=== PATIENT | male | born 1950 | race Caucasian/White ===

== ENCOUNTER → 2017-09-08 | Outpatient (CLI) | payer OTHER, MEDICARE ==
[~2017-09-08] MED LIST: CALC-449 PO; CALC0.5C PO; HYDR-4330 PO; LEVO125T72 PO; LOSA100T65 PO; LPR25 PO; LPT40 PO; MULT-506 PO
--- NOTE | 2017-09-08 08:17 | DIAGNOSTIC IMAGING REPORT ---
(BARIUM SWALLOW) ESOPHAGUS CLINICAL HISTORY: LARYNGOPHARYNGEAL REFLUX COMPARISON STUDY: None FLUOROSCOPY TIME: 0.8 minutes. FINDINGS: Patient initiated swallowing function well. There is mild esophageal irritability. There is abdomen prominence of the cricopharyngeus. No evidence for cricopharyngeal achalasia. Small hiatal hernia. Mild gastroesophageal reflux. IMPRESSION: 1. Mild esophageal irritability and/or spasm. 2. Intermittent prominence of the cricopharyngeus. 3. Minimal/mild gastroesophageal reflux. The above report was generated using voice recognition software. It may contain grammatical, syntax or spelling errors. Electronically signed by: Onofre Kim M.D. 09/08/2017 8:16 AM Dictated Date/Time: 09/08/2017 8:14 AM
== END | disposition home or self-care (01) ==
LOC: C.RAD 07:40
DX: K21.9 Gastro-esophageal reflux disease without esophagitis (principal)

== ENCOUNTER → 2017-11-14 | Outpatient (CLI) | payer OTHER, MEDICARE ==
[2017-11-14 16:39] LABS: BASO % 0.4 %; BASO ABS # 0.03 K/uL (0-0.2); EOS % 2.9 %; EOS ABS # 0.22 K/uL (0-0.5); HEMATOCRIT 44.8 % (42-52); HEMOGLOBIN 15.2 g/dL (14.0-18.0); IG# 0.01 K/uL (0.00-0.02); LYMPH % 26.8 %; LYMPH ABS # 2.03 K/uL (1.2-3.4); MEAN CELL VOLUME 88.9 fL (80-100); MEAN CORPUSCULAR HEMOGLOBIN 30.2 pg (25-34); MEAN CORPUSCULAR HGB CONC 33.9 g/dl (32-36); MEAN PLATELET VOLUME 11.6 fL (7.4-10.4); MONO % 5.9 %; MONO ABS # 0.45 K/uL (0.11-0.59); NEUT % 63.9 %; NEUT ABS # 4.84 K/uL (1.4-6.5); PLATELET COUNT 170 K/uL (130-400); RED CELL DISTRIBUTION WIDTH SD 41.8 fL (36.4-46.3); WHITE BLOOD COUNT 7.58 K/uL (4.8-10.8)
[2017-11-14 17:13] LABS: BLOOD UREA NITROGEN 20 mg/dl (7-18); CREATININE 0.49 mg/dl (0.60-1.40); GLUCOSE 82 mg/dl (70-99)
[2017-11-14 17:14] LABS: ALBUMIN 3.8 gm/dl (3.4-5.0); ALT/SGPT 28 U/L (12-78); CALCIUM 9.2 mg/dl (8.5-10.1); CARBON DIOXIDE 26 mmol/L (21-32); CHOLESTEROL 136 mg/dl (0-200); POTASSIUM 3.7 mmol/L (3.5-5.1); SODIUM 142 mmol/L (136-145)
[2017-11-14 17:27] LABS: ALKALINE PHOSPHATASE 65 U/L (45-117); AST/SGOT 17 U/L (15-37); LDL CHOLESTEROL CALCULATED 56 mg/dl; TOTAL PROTEIN 6.9 gm/dl (6.4-8.2)
== END | disposition home or self-care (01) ==
LOC: C.LAB 14:54
PROVIDERS: ATTEND Family Medicine
DX: I10 Essential (primary) hypertension (principal); E89.0 Postprocedural hypothyroidism

== ENCOUNTER → 2017-11-16 | Outpatient (CLI) | payer OTHER, MEDICARE ==
[2017-11-16 10:40] LABS: ALBUMIN 3.7 gm/dl (3.4-5.0)
== END | disposition home or self-care (01) ==
LOC: C.LAB1850 09:22
PROVIDERS: ATTEND Internal Medicine Endocrinology, Diabetes & Metabolism
DX: E89.0 Postprocedural hypothyroidism (principal); C73 Malignant neoplasm of thyroid gland; E55.9 Vitamin D deficiency, unspecified

== ENCOUNTER 2018-10-25 05:05 | Inpatient (IN) ==
--- NOTE | 2018-10-10 11:57 | PAT Medication Instructions ---
Medication Instructions Date of Service October 10, 2018 Home Medications aspirin [Aspirin Low Dose] 81 mg PO QAM atorvastatin 40 mg PO HS cholecalciferol (vitamin D3) 2,000 unit PO QAM levothyroxine 200 mcg PO QAM losartan 50 mg PO QAM morfzkgy-ypj-YU-lycopen-lutein [Centrum Silver] 1 tab PO QAM rivaroxaban [Xarelto] 20 mg PO PM hydrochlorothiazide 12.5 mg PO QAM ASK your prescriber and surgeon aspirin [Aspirin Low Dose] 81 mg PO QAM rivaroxaban [Xarelto] 20 mg PO PM DO NOT take the morning of surgery cholecalciferol (vitamin D3) 2,000 unit PO QAM losartan 50 mg PO QAM kwiomjtc-euf-VJ-lycopen-lutein [Centrum Silver] 1 tab PO QAM hydrochlorothiazide 12.5 mg PO QAM Take morning of surgery With a small sip of water, OTHERWISE NOTHING TO EAT OR DRINK AFTER MIDNIGHT: levothyroxine 200 mcg PO QAM Take evening before surgery atorvastatin 40 mg PO HS Other Notes If you have any questions please call us at [phone] or [phone] or [phone] or [phone]
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
--- NOTE | 2018-10-10 15:39 | XRay Report ---
TWO VIEW CHEST CLINICAL HISTORY: Preoperative examination. FINDINGS: PA and lateral chest radiographs are compared to study dated 09/01/2010 and correlated with chest CT dated 09/10/2018. The heart is enlarged and there is mild atherosclerotic calcification of t he thoracic aorta. Chronic interstitial thickening is similar to previous. No airspace consolidation or pleural effusion is identified. There is no pneumothorax. The skeletal structures are osteopenic. The bony thorax appears intact. Degenerative change is seen throughout the thoracic spine. Postoperat melanie change is noted in the left humeral head. Arthritic change is noted in both shoulders. IMPRESSION: Mild cardiac enlargement with no active disease in the chest. Electronically signed by: Shahid White M.D. 10/10/2018 3:37 PM
[2018-10-10 15:42] LABS: Basophils # (auto) 0.02 K/uL (0-0.2); Basophils % (auto) 0.3 %; Eosinophils # (auto) 0.27 K/uL (0-0.5); Eosinophils % (auto) 3.9 %; Hematocrit (blood only) 44.2 % (42-52); Immature Granulocytes # (auto) 0.01 K/uL (0.00-0.02); Immature Granulocytes % (auto) 0.1 %; Lymphocytes # (auto) 1.94 K/uL (1.2-3.4); Lymphocytes % (auto) 27.8 %; Mean Corpuscular Hgb Conc 33.9 g/dL (32-36); Mean Corpuscular Volume 89.5 fL (80-100); Mean Platelet Volume 10.7 fL (7.4-10.4); Monocytes # (auto) 0.43 K/uL (0.11-0.59); Monocytes % (auto) 6.2 %; Neutrophils # (auto) 4.31 K/uL (1.4-6.5); Neutrophils % (auto) 61.7 %; Platelet Count 166 K/uL (130-400); RDW Coefficient of Variation 13.1 % (11.5-14.5); RDW Standard Deviation 43.2 fL (36.4-46.3); Red Blood Count 4.94 M/uL (4.7-6.1); White Blood Count 6.98 K/uL (4.8-10.8)
[2018-10-10 15:49] LABS: BUN Creatinine Ratio 34.5 (10-20); Blood Urea Nitrogen 23 mg/dl (7-18); C Reactive Protein < 0.29 mg/dl (0-0.29); Carbon Dioxide 29 mmol/L (21-32); Chloride 106 mmol/L (98-107); Creatinine Clr Calc Pharmacy 128.3 ml/min; Est GFR (African American) 112.8; Est GFR (Non-African American) 97.4; Glucose 92 mg/dl (70-99); Potassium 4.5 mmol/L (3.5-5.1); Sodium 141 mmol/L (136-145)
[2018-10-10 15:55] LABS: Partial Thromboplastin Time 27.1 Seconds (21.0-31.0); Prothrombin Time 10.4 Seconds (9.0-12.0)
--- NOTE | 2018-10-20 19:35 | History and Physical Report ---
DATE OF ADMISSION: 10/25/2018 CHIEF COMPLAINT: Bilateral knee pain, right side greater than left. HISTORY OF PRESENT ILLNESS: Patient is a 68-year-old cruz from [place] who presents on referral from my partner Dr. Woodard for surgical treatment of his knee arthritis. He has a long history of bilateral knee pain and discomfort, followed by Dr. Woodard over the years. He did have his right hip replaced by Dr. Garnica in the past and then subsequent left hip replacement and left hip revision done by Dr. Garnica. Last hip surgery was 5 years or so ago. He has done pretty well from that standpoint but now limited by knee pain. He describes pain and discomfort in both knees. He has pain going up and down steps. He has difficulty getting off the ground or floor when he gets down. He limps pretty much all day long, and as the day goes on, he limps more and more. He has had injection, which helped very temporarily. He presents now for evaluation and for treatment. Of note, the patient did have a left shoulder surgery by Dr. Noonan 20 years ago complicated by infection but no further infectious problems. He does have a history of a DVT in his left lower extremity 2 years ago and on Xarelto. No known clotting disorder. PAST MEDICAL HISTORY: 1. Hypothyroidism. 2. History of DVT in the left lower extremity without any clotting disorder but on Xarelto. 3. Elevated cholesterol. 4. Hypertension. 5. Thyroid cancer, status post removal. 6. Cerebrovascular disease, status post endarterectomy. PAST SURGICAL HISTORY: Previous surgeries include 1. Right hip replacement. 2. Left hip replacement x2, last one 5 years ago without any infectious problems. 3. Thyroid removal for cancer. 4. Left shoulder surgery, complicated by infection 20 years ago. 5. Hernia operation x2. 6. Carotid endarterectomy. ALLERGIES: None. MEDICATIONS: Current medicines are: 1. Levothyroxine 200 mcg a day. 2. Aspirin 81 mg a day. 3. Atorvastatin 40 mg a day. 4. Vitamin D3. 5. Centrum Silver. 6. Losartan 50 mg a day. 7. Xarelto 20 mg a day. SOCIAL HISTORY: Significant for a 68-year-old male. He is a cruz. He is single. Recently went through a divorce. No smoking history. Rare alcohol intake. FAMILY HISTORY: Significant for heart disease. REVIEW OF SYSTEMS: Negative for diabetes. Denies any current chest pain, no shortness of breath. No known clotting or bleeding disorders. He does have a history of 1 DVT. PHYSICAL EXAMINATION: GENERAL: Examination shows a pleasant elderly cruz, looks to be in pretty good health. HEENT: Benign. NECK: Supple. No lymphadenopathy. RESPIRATORY: Lungs are clear to auscultation. CARDIOVASCULAR: Heart has regular rate and rhythm. GASTROINTESTINAL: Abdomen is soft, nontender, nondistended. EXTREMITIES: Grossly neurovascularly intact except as follows: Examination of both knees reveals patient walks with a waddling type gait. He has varus alignment to both knees, with a varus thrust with weightbearing. Range of motion is pretty symmetric with about 5-10 degrees short of full extension, 110 degrees of flexion. There is no instability. No pain with hip motion. IMAGING: X-rays of both knees reveal advanced bilateral knee DJD. He has complete loss of medial joint space on both sides. Both sides are pretty equal in severity. He has subchondral sclerosis. He has osteophytes in all 3 compartments. ASSESSMENT: A 68-year-old male cruz, status post bilateral hip replacements, with bilateral knee degenerative joint disease, right side more symptomatic than the left. He has failed conservative treatment and would like to have his right knee replaced. He does have a history of a deep venous thrombosis one time 2 years ago and on Xarelto. No known clotting disorder. He has had this infection in the shoulder 20 years ago but no further infections. PLAN: We talked about treatment. We are going to proceed with right knee replacement. The risks and benefits of this procedure were explained to the patient including but not limited to DVT, PE, , infection, neurological injury, vascular injury, bleeding problem, pain, limited range of motion, stiffness, failure to relieve symptoms, incomplete relief of symptoms, need for further surgery in the future, fracture, leg length inequality, nerve palsy, persistent pain, need for revision surgery in the future, etc. The patient understands and desires to proceed. Informed consent was obtained. Will have to hold his Xarelto 3 days preop, and we will place him on prophylactic dose immediately postop and then increased to a therapeutic dose. As far as discharge plans, he is planning to be discharged to home with [facility] home health program. At that time, he is going to need some extra help for the first 2 weeks.
[2018-10-25] MEDS: LR 500ML BOLUS, THEN 15ML/HR IV SCH ×4 (05:50→16:57)
[2018-10-25] MEDS ORDERED: LACTATED RINGER'S 1,000 ML IV SCH (06:00)
[2018-10-25] MEDS ORDERED: CEFAZOLIN 3000MG 65 ML IV SCH (06:00)
[2018-10-25] MEDS ORDERED: ACETAMINOPHEN 500 MG TAB PO SCH (06:00)
[2018-10-25] MEDS ORDERED: FAMOTIDINE 20 MG TAB PO SCH (06:00)
[2018-10-25] MEDS ORDERED: METOCLOPRAMIDE HCL 10 MG TABLET PO SCH (06:00)
[2018-10-25] MEDS ORDERED: BUPIVACAINE LIPOSOME/PF 266 MG, BUPIVACAINE/EPINEPHRINE 50 ML, SODIUM CHLORIDE 0.9% 30 ... INFIL SCH (06:00)
[2018-10-25] MEDS ORDERED: GABAPENTIN 300 MG PO SCH (06:00)
[2018-10-25] MEDS ORDERED: ATROPINE SULFATE 0.1 MG/ML 5ML SYR IV PRN (06:21)
[2018-10-25] MEDS ORDERED: PHENYLEPHRINE 100MCG/ML 5ML SYR IV PRN (06:21)
[2018-10-25] MEDS ORDERED: ROPIVACAINE 0.5% 5 MG/ML 30 ML VIAL ONE (06:21)
[2018-10-25] MEDS ORDERED: HYDROmorphone INJ 1 MG/ML SYRINGE IV PRN (06:21)
[2018-10-25] MEDS ORDERED: ONDANSETRON INJ 2 MG/ML 2 ML VIAL IV PRN ×2 (06:21→10:04)
[2018-10-25] MEDS ORDERED: fentaNYL citrate 100 MCG/2 ML VIAL IV PRN (06:21)
[2018-10-25] MEDS ORDERED: BUPIVACAINE 0.5 % 5 MG/1 ML PF 10ML VIAL ONE (06:21)
[2018-10-25] MEDS ORDERED: ePHEDrine sulfate 50 MG/ML AMP IV PRN (06:21)
[2018-10-25] MEDS ORDERED: BACITRACIN INJ 50,000 UNIT VIAL ONE (06:30)
[2018-10-25] MEDS ORDERED: SODIUM CHLORIDE 0.9% PF 50 ML VIAL ONE (06:30)
[2018-10-25] MEDS ORDERED: BUPIVACAINE LIPOSOME 1.3% 266 MG/20 ML VIAL INFIL ONE (06:30)
[2018-10-25] MEDS ORDERED: TRANEXAMIC ACID 1,000 MG **IV Intra-op IV SCH (06:30)
[2018-10-25] MEDS ORDERED: BUPIVACAINE 0.25% 30 ML VIAL ONE (06:30)
[2018-10-25] MEDS ORDERED: EPINEPHrine INJ 1 MG/ML AMP ONE (06:31)
[2018-10-25] MEDS ORDERED: fentaNYL citrate 100 MCG/2 ML VIAL ONE (06:40)
[2018-10-25] MEDS ORDERED: MIDAZOLAM HCL 1 MG/ML 2ML VIAL ONE ×3 (06:40→08:18)
[2018-10-25] MEDS ORDERED: LIDOCAINE HCL 2% 2 ML VIAL/AMP(20MG/ML) INFIL ONE (06:44)
[2018-10-25] MEDS ORDERED: PROPOFOL IV EMULSION 10 MG/ML 20 ML VIAL IV ONE (06:44)
--- NOTE | 2018-10-25 06:48 | History & Physical Bridge Note ---
Date of Service October 25, 2018 History & Physical Bridge Note I have examined the patient, reviewed the History & Physical and in the interval since the performance of the History & Physical I have noted the following changes of clinical significance: no changes noted
--- NOTE | 2018-10-25 08:47 | Post Operative Brief Note ---
Immediate Post Op Note v1 Date of Surgery October 25, 2018 Pre & Post Diagnosis Operation Date: 10/25/18 07:00 Pre-Op Diagnosis: Right Knee Advanced Degenerative Joint Disease Post-Op Diagnosis: Right Knee Advanced Degenerative Joint Disease Procedure Operation Date: 10/25/18 07:00 Actual Procedures p Right Total Knee Arthroplasty(Right) - Monty Christensen MD Surgeon Monty Christensen MD Prehemmer Willie, PAC Estimated Blood Loss 50 Findings Consistent with Post-Op Diagnosis Fluids 1500 cc Specimens Right Knee Drains Wade Catheter (A 16 Palau[place] wade catheter was inserted by NEHA Moya, without difficulty, clear yellow urine obtained, output to be monitored by Anesthesia.) Anesthesia Type Spinal MAC Complications none Disposition Accompanied Patient To Recovery: No Disposition: Recovery Room
--- NOTE | 2018-10-25 09:30 | XRay Report ---
XR knee RT 2V routine CLINICAL HISTORY: Surgical Post Op DEGENERATIVE ARTHRITIS COMPARISON: Outside x-ray dated 09/14/2018 DISCUSSION: There are postsurgical changes of a total right knee arthroplasty and patellar resurfacin g. The femoral and tibial components appear well seated. There is air in soft tissues consistent with recent surgery. There are overlying skin lena. IMPRESSION: Postsurgical changes of a total right knee arthroplasty. Electronically signed by: Parth Ordaz M.D. 10/25/2018 9:28 AM
--- NOTE | 2018-10-25 09:54 | Anesthesiology Progress Note ---
Date of Service October 25, 2018 Anesthesia Post Procedure Vital Signs Vital Signs: Temp Pulse Pulse Resp BP Pulse Ox 10/25/18 09:44 74 13 126/84 98 10/25/18 09:30 72 12 144/87 H 97 10/25/18 09:20 36.3 C L 64 12 127/83 97 10/25/18 09:10 68 15 133/80 98 10/25/18 09:00 65 12 133/85 99 10/25/18 08:51 36.4 C L 68 18 127/83 99 10/25/18 05:31 36.9 C 74 18 156/101 H 94 Notes Mental Status: alert / awake / arousable Patient Amnestic to Procedure: Yes Nausea / Vomiting: adequately controlled Pain: adequately controlled Airway Patency, RR, SpO2: stable & adequate BP & HR: stable & adequate Neuraxial Anesthesia: was administered and sensory block is resolving Anesthetic Complications: no major complications apparent
[2018-10-25] MEDS ORDERED: MAGNESIUM HYDROXIDE SUSP 30 ML UDC PO PRN (10:04)
[2018-10-25] MEDS ORDERED: MULTIVITAMIN TAB PO SCH (10:04)
[2018-10-25] MEDS ORDERED: BISACODYL 10 MG SUPP PR PRN (10:04)
[2018-10-25] MEDS ORDERED: ALUMINUM/MAGNESIUM SUSP 30 ML UDC PO PRN (10:04)
[2018-10-25] MEDS ORDERED: TAMSULOSIN HCL 0.4 MG CAP PO PRN (10:04)
[2018-10-25] MEDS ORDERED: METOCLOPRAMIDE HCL INJ 5 MG/ML 2 ML VIAL IV PRN (10:04)
[2018-10-25] MEDS ORDERED: HYDROmorphone INJ 0.5 MG/0.5 ML SYR IV PRN (10:04)
--- NOTE | 2018-10-25 10:32 | Operative Report ---
DATE OF OPERATION: 10/25/2018 SURGEON: Monty Christensen MD MARKETING RESEARCH COORDINATOR: NEHA Carlos PREOPERATIVE DIAGNOSIS: Right knee degenerative joint disease. POSTOPERATIVE DIAGNOSIS: Right knee degenerative joint disease. PROCEDURE PERFORMED: Right cemented posterior stabilized total knee arthroplasty. COMPLICATIONS: None. ESTIMATED BLOOD LOSS: 50 mL. FLUID REPLACEMENT: 1500 mL crystalloid fluid replacement. ANESTHESIA: Spinal with adductor canal block. DRAINS: None. SPECIMENS: Right knee sent for pathology. TOURNIQUET TIME: 62 minutes at 300 mmHg. OPERATIVE INDICATIONS: The patient is a 68-year-old very active cruz who has had a long history of knee pain and discomfort, right side a bit worse than the left. He has been through extensive conservative treatment over the years provided by my partner Dr. Woodard. This became less successful over time. He has trouble maintaining an independent lifestyle and would like to proceed with right total knee arthroplasty. OPERATIVE FINDINGS: Operative findings revealed advanced right knee DJD. He had extensive grade 4 lztd-bi-kgii changes in all 3 compartments. Fixed varus deformity to his knee. Moderate to large knee joint effusion. OPERATIVE IMPLANTS: Operative implants consisted of: 1. Biomet Vanguard size 75 right posterior stabilized femoral component. 2. A Biomet size 83 tibial tray. 3. A 12 mm posterior stabilized polyethylene insert. 4. A 34 x 8.5 all poly patella. OPERATIVE PROCEDURE: The patient was taken to the operating room, identified and placed on the operating table in supine position. All contact areas were appropriately padded. IV antibiotics were provided by the anesthesia team. A spinal anesthetic and adductor canal block had been provided in the holding area. Aleman catheter was placed in sterile fashion. A right thigh tourniquet was then placed and the right lower extremity was then prepped and draped in usual sterile fashion. The leg was elevated and exsanguinated with Esmarch and tourniquet was placed at 300 mmHg. An anterior approach of the right knee was then performed through a longitudinal incision centered over the patella. Sharp dissection was carried through subcutaneous tissue down to the level of the extensor mechanism. A medial parapatellar arthrotomy incision was made. Some subperiosteal dissection was carried out medially. The fat pad resected from beneath the patellar tendon. There were multiple bony fragments around the patella tendon which were excised and scarred in. The patella was then everted and knee was flexed. The osteophytes were taken off the distal femur. The lateral patellofemoral ligament was released. The ACL was absent. The PCL was released from the distal femur and the tibia subluxated anteriorly. The external tibial alignment jig was then placed in the anterior face of the tibia and adjusted 16 mm medially. Proximal tibial cut was made to remove a millimeter at best of bone from the most deficient aspect of the medial tibial plateau. Some osteophytes were taken off medial and posteromedially. Tibia was sized to size 83. Attention was then drawn to the femur. The distal femur was entered with a sharp drill. Intramedullary canal was suctioned. A right 6-degree valgus cutting guide was placed. Distal femoral cutting block was pinned in place. Distal femoral cut was made to take an additional 3 mm of bone off the distal femur. The femur was then sized to a size 75. We did downsize this almost an entire size. The AP cutting block was pinned parallel to the epicondylar axis, which was 3 degrees of external rotation. The anterior cut, anterior chamfer, posterior cut, posterior chamfer cuts were made. Box cutting guide was placed and adjusted slightly lateral. The box cut was made. The knee was flexed. The remnants of the medial and lateral menisci were excised. The osteophytes were taken off the posterior aspect of the femur. Trial femoral component was placed. Tibial tray was pinned in maximum external rotation and the drill and stem punch were used to create defect in proximal tibia for the tibial tray. The knee was then trialed and the 12 mm insert fit most appropriately. Attention was then drawn to the patella. The patella was cleaned of all soft tissues. Patella thickness measured 25 mm in thickness cut down to 14. It was sized to a size 34 patella. Lug holes were drilled for a 34 patella. Lateral osteophyte was removed. Patella button was placed. Knee was taken through range of motion and patella tracked nicely with no thumbs test. Attention was then drawn toward placement of permanent components. All trial components were removed. Bone plug was placed in the distal femur to limit blood loss. A double batch of Palacos G cement was mixed. A Biomet Vanguard size 75 right posterior stabilized femoral component, an 83 tibial tray, 12 mm posterior stabilized polyethylene insert, and a 34 x 8.5 all poly patella then cemented in place. Knee was brought down into full extension until cement hardened. Final cement check was then performed. Pericapsular tissues were injected with a total of 100 mL of combination of 20 mL of Exparel, 30 mL of normal saline, 50 mL of 0.25% Marcaine with epinephrine. The patient did receive 1 gram of tranexamic acid. The tourniquet was then let down for final tourniquet time of 62 minutes. Hemostasis was assured using electrocautery. Extensor mechanism was then closed with a combination of #1 PDS suture and #1 Vicryl suture in a [id number] fashion. Extensor mechanism was checked and found to be intact. The subcutaneous tissues were then closed with #2 Dexon suture in a buried interrupted fashion. Skin was closed with skin lena. The leg was then cleaned, dried and a sterile dressing of Xeroform, 4 x 4, sterile cast padding and Sarabjit bandage were applied. The patient then transferred to the recovery room in stable condition. The patient tolerated the procedure well with no complication. All needle and sponge counts were correct at the end of the operation. I attest to the content of the Intraoperative Record and any orders documented therein. Any exception s are noted below.
[2018-10-25] MEDS: hydroCHLOROthiazide 25 MG TAB PO SCH (10:43)
[2018-10-25] MEDS: ASPIRIN 81 MG ECTAB PO SCH (10:43)
[2018-10-25] MEDS: LOSARTAN POTASSIUM 50 MG TAB PO SCH (10:43)
[2018-10-25] MEDS: PANTOprazole 40 MG TAB PO SCH (10:44)
[2018-10-25] MEDS: CEROVITE ADV FORMULA TAB PO SCH (10:44)
[2018-10-25] MEDS: CHOLECALCIFEROL 1,000 UNITS TAB PO SCH (10:44)
[2018-10-25] MEDS: LEVOTHYROXINE SODIUM 200 MCG TABLET PO SCH (10:44)
[2018-10-25] MEDS: DOCUSATE SODIUM 100 MG CAP PO SCH ×2 (10:45→20:52)
[2018-10-25] MEDS: KETOROLAC TROMETHAMINE 15 MG/ML VIAL IV SCH ×3 (10:45→22:00)
[2018-10-25] MEDS: ACETAMINOPHEN 500 MG TAB PO SCH ×2 (13:02→20:53)
[2018-10-25] MEDS: SODIUM CHLORIDE 0.9% 1000ML 1,000 ML IV SCH ×2 (13:38→22:00)
[2018-10-25] MEDS: TAPENTADOL HCL ER 50 MG TABCR PO SCH ×2 (14:10→20:52)
[2018-10-25] MEDS: CEFAZOLIN 2000MG 2,000 MG/15 ML SYR IV SCH ×2 (14:10→22:01)
[2018-10-25] MEDS ORDERED: TRANEXAMIC ACID 1,000 MG in 0.9 % SODIUM CHLORIDE 100 ML IV SCH (15:30)
[2018-10-25] MEDS: OXYCODONE HCL IR 5 MG TAB (IMMEDIATE RELEASE) PO PRN ×2 (17:20→21:01)
[2018-10-25] MEDS: FERROUS GLUCONATE 324 MG TAB PO SCH (17:22)
[2018-10-25] MEDS: SENNA 8.6 MG TAB PO SCH (20:52)
[2018-10-25] MEDS: ATORVASTATIN 40 MG TAB PO SCH (20:52)
[2018-10-26] MEDS: KETOROLAC TROMETHAMINE 15 MG/ML VIAL IV SCH (04:05)
[2018-10-26] MEDS: LEVOTHYROXINE SODIUM 200 MCG TABLET PO SCH (06:18)
[2018-10-26] MEDS: ACETAMINOPHEN 500 MG TAB PO SCH ×3 (06:18→22:46)
[2018-10-26 07:09] LABS: Hemoglobin 13.4 g/dL (14.0-18.0); Mean Corpuscular Hgb Conc 33.5 g/dL (32-36); Mean Corpuscular Volume 88.9 fL (80-100); Mean Platelet Volume 11.5 fL (7.4-10.4); Platelet Count 133 K/uL (130-400); RDW Coefficient of Variation 13.3 % (11.5-14.5); RDW Standard Deviation 43.4 fL (36.4-46.3); White Blood Count 9.16 K/uL (4.8-10.8)
[2018-10-26 07:44] LABS: BUN Creatinine Ratio 27.8 (10-20); Calcium 8.2 mg/dl (8.5-10.1); Creatinine Clr Calc Pharmacy 108.2 ml/min; Est GFR (African American) 105.4; Potassium 3.8 mmol/L (3.5-5.1)
--- NOTE | 2018-10-26 07:44 | Anesthesiology Progress Note ---
Date of Service October 26, 2018 Anesthesia Post Procedure Vital Signs Vital Signs: Temp Pulse Pulse Resp BP Pulse Ox 10/26/18 03:12 36.7 C 74 16 133/78 97 10/25/18 23:19 36.9 C 80 16 120/78 92 10/25/18 15:32 36.8 C 71 20 151/90 H 96 10/25/18 13:06 36.6 C 71 15 158/90 H 97 10/25/18 11:58 36.6 C 73 15 148/85 H 97 10/25/18 11:04 65 19 150/94 H 98 10/25/18 10:31 36.4 C L 76 17 149/80 H 98 10/25/18 10:07 36.4 C L 71 15 138/85 97 10/25/18 09:44 74 13 126/84 98 10/25/18 09:30 72 12 144/87 H 97 10/25/18 09:20 36.3 C L 64 12 127/83 97 10/25/18 09:10 68 15 133/80 98 10/25/18 09:00 65 12 133/85 99 10/25/18 08:51 36.4 C L 68 18 127/83 99 Pain Intensity Right Knee: Pain Intensity: 3 Notes Mental Status: alert / awake / arousable and participated in evaluation Patient Amnestic to Procedure: Yes Nausea / Vomiting: adequately controlled Pain: adequately controlled Airway Patency, RR, SpO2: stable & adequate BP & HR: stable & adequate Hydration State: stable & adequate Neuraxial Anesthesia: was administered and sensory block resolved Anesthetic Complications: no major complications apparent
[2018-10-26] MEDS: DOCUSATE SODIUM 100 MG CAP PO SCH ×2 (09:03→20:04)
[2018-10-26] MEDS: FERROUS GLUCONATE 324 MG TAB PO SCH ×2 (09:03→18:22)
[2018-10-26] MEDS: LOSARTAN POTASSIUM 50 MG TAB PO SCH (09:03)
[2018-10-26] MEDS: ASPIRIN 81 MG ECTAB PO SCH (09:04)
[2018-10-26] MEDS: hydroCHLOROthiazide 25 MG TAB PO SCH (09:04)
[2018-10-26] MEDS: CEROVITE ADV FORMULA TAB PO SCH (09:05)
[2018-10-26] MEDS: CHOLECALCIFEROL 1,000 UNITS TAB PO SCH (09:05)
[2018-10-26] MEDS: PANTOprazole 40 MG TAB PO SCH (09:05)
[2018-10-26] MEDS: RIVAROXABAN 10 MG TABLET PO SCH (09:06)
[2018-10-26] MEDS: TAPENTADOL HCL ER 50 MG TABCR PO SCH ×2 (09:10→20:04)
[2018-10-26] MEDS: OXYCODONE HCL IR 5 MG TAB (IMMEDIATE RELEASE) PO PRN ×3 (09:10→22:47)
--- NOTE | 2018-10-26 09:44 | Progress Note ---
DATE: 10/26/2018 SUBJECTIVE: A 68-year-old gentleman postop day 1 from right knee replacement. He is doing well. Pain is controlled. No chest pain or shortness of breath. Not feeling dizzy or lightheaded. OBJECTIVE: VITAL SIGNS: Temperature 36.7. Vital signs stable. GENERAL: Physical examination shows a healthy, pleasant, middle-aged male. He is sitting up in his bedside chair and looks comfortable. LUNGS: Clear to auscultation. HEART: Regular rate and rhythm. ABDOMEN: Soft, nontender, nondistended. EXTREMITIES: Grossly neurovascularly intact except as follows: Examination of the right leg reveals the dressing to be in place. Just a trace bit of bloody drainage. He can dorsiflex and plantarflex his foot appropriately. He is neurologically intact. LABORATORY DATA: Hemoglobin 13.4. Hematocrit 40.0. His electrolytes are pending. ASSESSMENT: A 68-year-old gentleman postop day 1 from right knee replacement, doing pretty well. Pain is controlled. He is neurologically intact. PLAN: 1. DVT prophylaxis including thigh-high TEDs, SCDs, and will put him back on his Xarelto. He is going to be on a prophylactic dose here initially and then a therapeutic dose on discharge. 2. PT, OT. Weight bear as tolerated. Right total knee protocol. 3. Pain control, doing well with current pain regimen. 4. Disposition: Plan to discharge to home with some home health once adequately recovered.
[2018-10-26] MEDS: ATORVASTATIN 40 MG TAB PO SCH (20:04)
[2018-10-26] MEDS: SENNA 8.6 MG TAB PO SCH (20:04)
[2018-10-27 06:28] VITALS: BP 161/80; PULSE 98; TEMP 99.3; O2SAT 93
[2018-10-27] MEDS: OXYCODONE HCL IR 5 MG TAB (IMMEDIATE RELEASE) PO PRN (06:40)
[2018-10-27] MEDS: ACETAMINOPHEN 500 MG TAB PO SCH (06:40)
[2018-10-27] MEDS: LEVOTHYROXINE SODIUM 200 MCG TABLET PO SCH (06:40)
[2018-10-27] MEDS: LOSARTAN POTASSIUM 50 MG TAB PO SCH (07:28)
[2018-10-27] MEDS: FERROUS GLUCONATE 324 MG TAB PO SCH (07:28)
[2018-10-27] MEDS: DOCUSATE SODIUM 100 MG CAP PO SCH (07:28)
[2018-10-27] MEDS: hydroCHLOROthiazide 25 MG TAB PO SCH (07:29)
[2018-10-27] MEDS: ASPIRIN 81 MG ECTAB PO SCH (07:29)
[2018-10-27] MEDS: CEROVITE ADV FORMULA TAB PO SCH (07:30)
[2018-10-27] MEDS: PANTOprazole 40 MG TAB PO SCH (07:31)
[2018-10-27] MEDS: CHOLECALCIFEROL 1,000 UNITS TAB PO SCH (07:31)
[2018-10-27] MEDS: RIVAROXABAN 10 MG TABLET PO SCH (07:32)
[2018-10-27] MEDS: TAPENTADOL HCL ER 50 MG TABCR PO SCH (07:34)
--- NOTE | 2018-10-27 08:24 | Progress Note ---
DATE: 10/27/2018 SUBJECTIVE: A 68-year-old gentleman postop day 2 from a right knee replacement. He is doing pretty well. Pretty painful after therapy. The pain medicine seems to work pretty well. No chest pain or shortness of breath. Not feeling dizzy or lightheaded. OBJECTIVE: VITAL SIGNS: Temperature 37.4. Vital signs stable. GENERAL: Physical examination shows a pleasant, middle-aged male. He is sitting up in the bedside chair, looks pretty comfortable. EXTREMITIES: Examination of the right leg reveals the dressing to be clean, dry and intact. Calf is soft and supple. He is neurologically intact. ASSESSMENT: A 68-year-old gentleman postop day 2 from right knee replacement, doing well. Pain is controlled. PLAN: 1. DVT prophylaxis including thigh-high TEDs, SCDs, and back on his Xarelto. We will start back on a therapeutic dose tomorrow. 2. PT/OT. Weight bear as tolerated. Right total knee protocol. 3. Pain control, doing well with current pain regimen. 4. Disposition: Plan to discharge to home with some home health later today.
--- NOTE | 2018-11-01 08:20 | Discharge Summary ---
ADMITTING PHYSICIAN AND SURGEON: Dr. Christensen. ADMITTING DIAGNOSIS: Right knee degenerative joint disease. SURGERY PERFORMED: Right total knee arthroplasty. SECONDARY DIAGNOSES: Hypothyroidism, history of DVT, elevated cholesterol, hypertension, thyroid cancer, cerebrovascular disease. CONSULTS: None obtained. HISTORY AND PHYSICAL EXAMINATION: Well documented in the patient's chart. HOSPITAL COURSE: The patient admitted on 10/25/2018 and underwent total knee arthroplasty, tolerated the procedure well. There were no complications. He was transferred to the PACU postoperatively and later to the orthopedic floor for further care. He was given Ancef for antibiotic prophylaxis, VITALY stockings, SCDs and Xarelto for DVT prophylaxis. Hemoglobin, hematocrit and vital signs were monitored during his hospital stay and remained stable, did not require any blood transfusions. There were no complications. By postoperative day 2, he was tolerating a regular diet, pain was controlled with oral pain medicine. He was participating in physical therapy. On postop day 2, he was discharged home, set up with home health services, given printed discharge instructions including new prescriptions for Tylenol and oxycodone. Continue his home medications, continue with physical therapy, weightbearing as tolerated, VITALY stockings. Follow up approximately 2 weeks postoperatively or sooner if any problems or concerns.
== END 2018-10-27 10:34 | disposition home health service (06) | DRG 470 ==
LOC: PAT 05:05 → 3E 08:53

== ENCOUNTER 2025-01-15 11:32 | Observation (INO) ==
--- NOTE | 2024-12-20 10:01 | PAT Medication Instructions ---
Medication Instructions Date of Service December 20, 2024 Home Medications Medication Instructions Recorded baclofen 20 mg tablet 20 mg PO TID #270 tabs 12/11/24 pregabalin 75 mg capsule 75 mg PO BID #120 caps 12/11/24 topiramate 100 mg tablet 100 mg PO BID #180 tabs 12/11/24 Medication List: cholecalciferol (vitamin D3) 25 mcg (1,000 unit) capsule (Vitamin D3) 2,000 unit PO QAM levothyroxine 200 mcg tablet 200 mcg PO QAM zfqtcucg-gjh-vdodi acid 0.4 mg-lycopene 300 mcg-lutein 250 mcg tablet (Centrum Silver) 1 tab PO QAM losartan 100 mg tablet 100 mg PO QAM turmeric 400 mg capsule 400 mg PO QAM rosuvastatin 40 mg tablet 40 mg PO HS baclofen 20 mg tablet 20 mg PO TID levothyroxine 25 mcg tablet 25 mcg PO QAM pregabalin 75 mg capsule 75 mg PO BID topiramate 100 mg tablet 100 mg PO BID rivaroxaban 10 mg tablet (Xarelto) 10 mg PO HS MEDICATION INSTRUCTIONS: ASK your prescriber and surgeon rivaroxaban 10 mg tablet (Xarelto) 10 mg PO HS STOP taking 48 hours before surgery turmeric 400 mg capsule 400 mg PO QAM DO NOT take the morning of surgery otbwltyg-nor-nxwet acid 0.4 mg-lycopene 300 mcg-lutein 250 mcg tablet (Centrum Silver) 1 tab PO QAM cholecalciferol (vitamin D3) 25 mcg (1,000 unit) capsule (Vitamin D3) 2,000 unit PO QAM losartan 100 mg tablet 100 mg PO QAM Take morning of surgery With a small sip of water, OTHERWISE NOTHING TO EAT OR DRINK AFTER MIDNIGHT: levothyroxine 25 mcg tablet 25 mcg PO QAM levothyroxine 200 mcg tablet 200 mcg PO QAM baclofen 20 mg tablet 20 mg PO TID pregabalin 75 mg capsule 75 mg PO BID topiramate 100 mg tablet 100 mg PO BID Take evening before surgery rosuvastatin 40 mg tablet 40 mg PO HS baclofen 20 mg tablet 20 mg PO TID pregabalin 75 mg capsule 75 mg PO BID topiramate 100 mg tablet 100 mg PO BID Other Notes If you have any questions please call us at [phone] or [phone] or [phone] or [phone]
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
[~2025-01-15 11:32] MED LIST changes: +BUPIVACAINE 0.5 % 5 MG/1 ML PF 10ML VIAL ONE; -CALC-449 PO; -CALC0.5C PO; -HYDR-4330 PO; -LEVO125T72 PO; -LOSA100T65 PO; -LPR25 PO; -LPT40 PO; -MULT-506 PO; +ceFAZolin 3000MG 3,000 MG/72.5 ML BAG IV SCH
[2025-01-15] MEDS ORDERED: fentaNYL citrate PF 100 MCG/2 ML VIAL ONE (11:44)
[2025-01-15] MEDS ORDERED: MIDAZOLAM HCL 1 MG/ML 2ML VIAL ONE (11:44)
[2025-01-15] MEDS ORDERED: PROPOFOL IV EMULSION 10 MG/ML 20 ML VIAL IV ONE (11:47)
[2025-01-15] MEDS ORDERED: ONDANSETRON INJ 2 MG/ML 2 ML VIAL ONE (11:47)
[2025-01-15] MEDS ORDERED: ROCURONIUM BROMIDE 10 MG/ML 5 ML VIAL IV ONE ×2 (11:47→15:32)
[2025-01-15] MEDS: ACETAMINOPHEN 500 MG TAB PO SCH ×2 (12:18→22:30)
[2025-01-15] MEDS: METOCLOPRAMIDE HCL 10 MG TABLET PO SCH (12:19)
[2025-01-15] MEDS: dexAMETHasone**PF** 10 MG/ML VIAL IV SCH (12:19)
[2025-01-15] MEDS: GABAPENTIN 300 MG CAP PO SCH (12:19)
[2025-01-15] MEDS: FAMOTIDINE 20 MG TAB PO SCH (12:19)
[2025-01-15] MEDS: LR 60ML/HR IV SCH (12:19)
[2025-01-15] MEDS: CeleBREX 200 MG CAP PO SCH (12:19)
[2025-01-15] MEDS: LR 15ML/HR IV SCH (12:20)
[2025-01-15] MEDS ORDERED: ONDANSETRON INJ 2 MG/ML 2 ML VIAL IV PRN ×2 (12:38→17:46)
[2025-01-15] MEDS ORDERED: ATROPINE SULFATE 0.1 MG/ML 10ML SYR IV PRN (12:38)
[2025-01-15] MEDS ORDERED: fentaNYL citrate PF 100 MCG/2 ML VIAL IV PRN (12:38)
[2025-01-15] MEDS ORDERED: ePHEDrine sulfate 50 MG/ML AMP IV PRN (12:38)
--- NOTE | 2025-01-15 12:39 | History & Physical Bridge Note ---
Date of Service January 15, 2025 History & Physical Bridge Note I have examined the patient, reviewed the History & Physical and in the interval since the performance of the History & Physical I have noted the following changes of clinical significance: Fine rash no weeping right shoulder likely reaction to ChloraPrep wipes.
[2025-01-15] MEDS: TRANEXAMIC ACID 1,000 MG **IV Pre-op IV SCH (12:56)
[2025-01-15] MEDS: ceFAZolin 2000MG 2,000 MG/15 ML SYR IV ONE ×2 (13:09→17:55)
[2025-01-15] MEDS ORDERED: ePHEDrine sulfate 50 MG/ML AMP ONE (13:36)
[2025-01-15] MEDS ORDERED: PHENYLEPHRINE HCL 10 MG/ML VIAL ONE (15:41)
[2025-01-15] MEDS: TRANEXAMIC ACID 1,000 MG **IV Intra-op IV SCH (16:22)
[2025-01-15] MEDS ORDERED: ceFAZolin 330 MG/ML 1 GM VIAL ONE (16:27)
[2025-01-15] MEDS ORDERED: GLYCOPYRROLATE 0.2 MG/ML VIAL ONE (16:31)
[2025-01-15] MEDS ORDERED: NEOSTIGMINE METHYLSULFATE 1 MG/ML 10ML VIAL ONE (16:31)
[2025-01-15] MEDS: ceFAZolin 2,000 MG/15 ML IV PUSH IV ONE (16:42)
--- NOTE | 2025-01-15 17:01 | Operative Report ---
Post Operative Report Pre & Post Diagnosis Operation Date: 01/15/25 12:55 Pre-Op Diagnosis: Rotator cuff tear arthropathy of right shoulder, humeral head cyst, chronic non repairable rotator cuff, prior proximal biceps rupture, severe glenoid bone loss. Post-Op Diagnosis: Same with 4.5 x 4.5 large humeral head fatty fibrous cyst well-contained.Massive subacromial bursitis I identified the patient and participated in the time-out.: Yes Procedure Operation Date: 01/15/25 12:55 Actual Procedures p Right Reverse Total Shoulder Arthroplasty requiring modular stem with distal humeral fixation, Curettage and bone grafting of Humeral head cyst, in situ biceps tenodesis (Right) - Piotr Goldstein MD Surgeon Piotr Goldstein MD Orthopedics Pediatric Physician Bienvenido SOLOMON Estimated Blood Loss 250 Findings Consistent with Post-Op Diagnosis Specimens 1. Humeral head cyst 2. 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 Patient has severe rotator cuff arthropathy [place] 4 with hufk-rb-[id number] glenohumeral joint and subacromial space and bone loss of the glenoid extending into the coracoid process which is partially fragmented from bone wear and posteriorly to the spine and the scapula. Chronic retracted rotator cuff tear subscapularis supraspinatus infraspinatus. Description of Procedure The patient was taken to the operating room and anesthetized under regional block and general anesthetic. The patient was positioned on the operating table in a 30 beach chair position with a towel roll under the medial border of the right scapula. The arm was draped free to be able to manipulate the shoulder as needed. The right upper extremity was prepped and draped in usual sterile fashion. Exam demonstrated good passive range of motion of the shoulder with [id number]-[id number] crepitation and a very prominent deformed AC joint from AC joint arthritis. AC joint currently asymptomatic.. An anterior deltopectoral approach was performed. A longitudinal incision was made in the deltopectoral interval. The skin was incised sharply. Subcutaneous flaps were elevated off the fascia. The cephalic vein was dissected out and retracted lateral with the deltoid. It was a moderately small vein. The clavipectoral fascia was divided at the lateral margin of the conjoined tendon and extended up to the CA ligament. The following findings were noted: There is a massive subdeltoid subacromial bursitis that extended over the torn subscapularis and extended under conjoined tendon. This was dissected out and resected and a large fluid collection was evacuated. It was noted at this time that the end of the coracoid was thinned out from bone wear and there was some increased mobility there likely from fragmentation of the coracoid but the coracoid was still stabilized by the CA ligament and the conjoined tendon. I left this intact. After the bursa was removed this revealed a massive rotator cuff tear involving the upper 75% of the subscapularis with retraction and the supraspinatus and infraspinatus both retracted medially and the teres minor was still intact and the humeral head was markedly irregular with multiple spurs and craters completely exposed bone with eburnation some bone loss and massive osteophytes. The biceps tendon was torn proximally within the joint but there was some biceps tendon at the level of the pectoralis was a thick well-developed tendon in the proximally appear to be scarred down in the groove. The upper centimeter of the pectoralis was released for inferior exposure. the biceps tendon was tenodesed to the pectoralis tendon with #2 FiberWire gjtdhw-rz-sdzvy and whipstitch type suture to prevent any retraction further distally as we were doing a subperiosteal peel that would go down through the bicipital groove area and might destabilize the biceps. The subscapularis tendon was taken down off the lesser tuberosity using a subperiosteal dissection. The circumflex vessels were identified and tied off with silk ties and divided laterally. The remnant of the inferior subscapularis tendon along with the capsule was then taken down off of the lesser tuberosity subperiosteally and subperiosteal dissection was performed along the neck of the humerus as the arm is gradually actually rotated exposing the humeral head. Retractors were readjusted and the inferior osteophytes were all resected using an artist chisel and a rongeur.. A Renee elevator was used to assist in releasing the capsule of the neck of the humerus. A Fukuda retractor was placed into the joint retracting the humeral head posterior. Glenoid findings demonstrated massive widened eroded glenoid with peripheral osteophytes all sides of the glenoid with erosion to the base of the spine and the scapula and to the base of the coracoid into the coracoid fragmenting the coracoid. There appeared to be concentric wear with regard to anterior posterior axis but otherwise a significant posterior superior wear pattern which was apex at about the 11 o'clock position. The labrum remnants and rimming osteophytes around the glenoid were excised. An anterior-inferior and posterior inferior capsular release were performed with electrocautery and a Renee elevator on bone. Attention was then taken to the humeral preparation. The cutting guide was placed into the humeral head. It was positioned at 20 of retroversion. Oscillating saw was used to resect the humeral head giving the cut above the level of the posterior rotator cuff insertion site. This osteotomy went through the large cyst and the cyst was measured at 4.5 cm round circumferential well- circumscribed mass with sclerotic borders. There was no fluid within the mass. Appear to be fibrofatty tissue. Mass was curetted out with large curettes and came out as 2 large pieces. This was sent to pathology for evaluation. The remainder area around the excision was pretty clean once the cyst was removed but we also used a various curettes to further curettage the cyst cavity. The remainder of the humeral head was ground-up piecemeal removing the cancellous bone for bone grafting and saving the articular surface and cortical subcortical bone for specimen. The humerus was then prepared for the stem. I first attempted to use the ascend flex stem from [employer]. The sizing broaches were used followed by trial broaches up to a size 8 which was too small and unstable with rotation and that was the largest stem of that type. This point we chose to get distal fixation with a Revive fully porous-coated modular longstem to get distal fixation. There was a blueprint preoperative template that we did make a custom guide but we used for templating purposes and this measured out is a 17 distal diameter. We reamed up to the 17 distally 19 proximally which appeared to be the best fit. I chose to go ahead with 180 mm construct which required 2 modular spacers that measured up to 50 mm and proximal body which was a 19 mm body. After appropriate reaming was performed the assembled trial was impacted and had good rotational stability. The appropriate sized cut protector was placed. The humerus was then retracted posterior to the glenoid. The glenoid was sized for a 29 mm full wedge baseplate. We used the full wedge guide to place the central guidewire followed by the angled reamer with minimal superficial bone resected. The reamer for the central boss was utilized. This entered into another posterior cyst so the central screw was somewhat co mpromised due to that cyst. The central drill hole was made. The depth gauge was used to measure for the central screw. The 29 mm full wedge baseplate with a 6.5 x 30 mm central screw baseplate was screwed into position. I did put bone graft into the cyst prior to placing the baseplate and screw. This was harvested from the humeral head. This helped increase fixation of the screw which was moderately good. There was a good tight press-fit of the body because of the bone was sclerotic. A superior compression screw was placed with good fixation at the maximum thickness of the wedge posterior superiorly and then anterior posterior and inferior locking screws were placed all with good fixation in the hard bone. The fan reamer was used for the 42 mm glenoid sphere and then the 42 mm glenoid sphere was impacted onto the baseplate and screwed in position. This was checked with a Renee elevator to be secure and stable fixation of the glenoid sphere. Attention was taken back to the humerus. The cut protector was removed and the +0 high offset humeral tray trial was assembled to the trial stem rotated appropriately to get bony coverage and then screwed in position. A trial reduction was performed. A 42/+6 mm reversed trial insert trial insert demonstrated good stability and no shuck. The trials were removed. The canal was irrigated with pulsatile lavage saline solution. The final component was assembled. The final component was [employer]ier revive stem with 17 mm distal stem of 90 mm in length with a 17 x 30 and 19 x 20 mm spacer and a 19 mm proximal body which were screwed together with the torque screwdriver. 180 mm total construct. This was impacted with excellent fixation. At this time the cancellous bone that was harvested from the humeral head was impacted around the proximal body portion of the implant to fill the cyst cavity and we also used 1 container of 15 cc of cancellous bone chunks that were impacted with a bone tamp. The +0 mm high offset flex tray was then impacted onto the stem overlying the graft followed by the 42 mm +6 flex reversed polyethylene insert.. T It was reduced to the glenoid sphere. Stability was verified. The pectoralis was repaired with #2 FiberWire jrgjhw-qk-qihtc sutures reinforcing the biceps tendon tenodesis. The arm was taken through a range of motion which demonstrated 130 degrees flexion 80 degrees abduction and 45 degrees external rotation. The implant was stable through the range of motion tested. The wound was copiously irrigated taking care not to irrigate out in the bone graft.. 2 Hemovac drains were placed. The deltopectoral interval was closed with vqllzy-gk-suxtp #1 Vicryl sutures. The subcutaneous tissues were closed with 2-0 Vicryl sutures. The skin was closed with surgical lena. A Silverlon sterile dressing was applied and a shoulder immobilizer. Bienvenido SOLOMON my physician mailroom assistant assisted in the procedure to the entire procedure including patient positioning arm positioning prepping and draping soft tissue retraction instrument management suture management and performed the subcutaneous and skin closure and will participate in the postoperative care of the patient. I attest to the content of the Intraoperative Record and any orders documented therein. Any exceptions are noted below.
--- NOTE | 2025-01-15 17:10 | Anesthesiology Progress Note ---
Date of Service January 15, 2025 Anesthesia Post Procedure Vital Signs Vital Signs: Temp Pulse Resp BP Pulse Ox O2 Del Method 01/15/25 12:06 36.6 C 82 16 151/88 H 96 Room Air Pain Intensity Right Shoulder: Pain Intensity: 5 Transfer of Care Handoff Completed per policy Notes Mental Status: alert / awake / arousable and participated in evaluation Patient Amnestic to Procedure: Yes Nausea / Vomiting: adequately controlled Pain: adequately controlled Airway Patency, RR, SpO2: stable & adequate BP & HR: stable & adequate Hydration State: stable & adequate Anesthetic Complications: no major complications apparent and Pt Satisfied with anesthetic care
[2025-01-15] MEDS ORDERED: diphenhydrAMINE Capsule 25 MG CAP PO PRN (17:46)
[2025-01-15] MEDS ORDERED: ALUMINUM/MAGNESIUM SUSP 30 ML UDC PO PRN (17:46)
[2025-01-15] MEDS ORDERED: METOCLOPRAMIDE HCL INJ 5 MG/ML 2 ML VIAL IV PRN (17:46)
[2025-01-15] MEDS ORDERED: HYDROmorphone INJ 0.5 MG/0.5 ML SYR IV PRN (17:46)
[2025-01-15] MEDS ORDERED: bisacodyL 10 MG SUPP PR PRN (17:46)
[2025-01-15] MEDS ORDERED: NALOXONE HCL 0.4 MG/1 ML VIAL/CARP IV PRN (17:46)
[2025-01-15] MEDS ORDERED: MAGNESIUM HYDROXIDE SUSP 30 ML UDC PO PRN (17:46)
[2025-01-15] MEDS ORDERED: oxyCODONE HCL IR 5 MG TAB (IMMEDIATE RELEASE) PO PRN (17:46)
[2025-01-15] MEDS ORDERED: TAMSULOSIN HCL 0.4 MG CAP PO PRN (17:46)
[2025-01-15] MEDS ORDERED: KETOROLAC TROMETHAMINE 15 MG/ML VIAL IV PRN (17:46)
[2025-01-15] MEDS: BUPIVACAINE LIPOSOME 1.3% 133 MG/10 ML VIAL ONE (17:54)
--- NOTE | 2025-01-15 18:16 | Communication Note ---
Date of Service: January 15, 2025 Reviewed chart and current orders - chronic issues appear stable and I will see tomorrow for consultation 74 y/o with CAD, AI, CVD, PAD, hypothyroidism. 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 Postop from shoulder surgery Xarelto to resume tomorrow night
[2025-01-15 19:06] VITALS: RESP 18
[2025-01-15] MEDS: PREGABALIN 75 MG CAP PO SCH (20:26)
[2025-01-15] MEDS: ROSUVASTATIN CALCIUM 20 MG TAB PO SCH (20:26)
[2025-01-15] MEDS: TOPIRAMATE 100 MG TAB PO SCH (20:26)
[2025-01-15] MEDS: DOCUSATE SODIUM 100 MG CAP PO SCH (20:26)
[2025-01-15] MEDS: SENNA 8.6 MG TAB PO SCH (20:26)
[2025-01-15] MEDS: BACLOFEN 20 MG TAB PO SCH (20:26)
[2025-01-15] MEDS: ceFAZolin 2000MG 2,000 MG/15 ML SYR IV SCH (22:36)
[2025-01-15] MEDS: TRANEXAMIC ACID / 0.7% NACL 1,000 MG/100 ML BAG IV SCH (22:37)
--- NOTE | 2025-01-16 00:34 | XRay Report ---
CLINICAL HISTORY: POST OP RT SHOULDER SRM COMPARISON: Prior CR DOS: 08/26/[address] DOS: 12/05/2024 were reviewed. TECHNIQUE: SHOULDER TRUE AP FINDINGS: Alignment: Loss of normal bony alignment. Mineralization: Normal. Bones: Humerus: Humeral head and neck are not visualized and replaced by metallic prosthesis consistent with history of surgery. No loosening of hardware seen. Scapula: Visualized scapula intact with no fracture. Clavicle: Visualized clavicle intact with no fracture. Acromioclavicular joint: Moderate degenerative changes with joint space narrowing and marginal osteophytes. Glenohumeral joint: Cannot be commented upon due to positioning and post operative status. Miscellaneous: Moderate soft tissue swelling with emphysema noted. Surgical clips and drain seen in situ. IMPRESSION: 1.Humeral head and neck are not visualized and replaced by metallic prosthesis with post operative changes. 2.Moderate acromioclavicular joint arthropathy Electronically signed by Edmond Schneider 01-16-2025 12:33 AM
[2025-01-16 06:12] LABS: Basophils # (auto) 0.02 K/uL (0.00-0.20); Basophils % (auto) 0.2 %; Eosinophils # (auto) 0.01 K/uL (0.00-0.50); Eosinophils % (auto) 0.1 %; Hematocrit (blood only) 35.7 % (42.0-52.0); Hemoglobin 11.7 g/dl (14.0-18.0); Immature Granulocytes # (auto) 0.02 K/uL (0.01-0.20); Immature Granulocytes % (auto) 0.2 %; Lymphocytes # (auto) 1.38 K/uL (1.20-3.40); Lymphocytes % (auto) 15.5 %; Mean Corpuscular Hemoglobin 28.4 pg (25.0-34.0); Mean Corpuscular Hgb Conc 32.8 g/dL (32.0-36.0); Mean Corpuscular Volume 86.7 fL (80.0-100.0); Mean Platelet Volume 11.4 fL (9.4-12.4); Platelet Count 138 K/uL (130-400); RDW Standard Deviation 41.1 fL (36.4-46.3); Red Blood Count 4.12 M/uL (4.70-6.10); White Blood Count 8.93 K/ul (4.8-10.8)
[2025-01-16] MEDS: LEVOTHYROXINE SODIUM 200 MCG TABLET PO SCH (06:31)
[2025-01-16] MEDS: LEVOTHYROXINE SODIUM 25 MCG TABLET PO SCH (06:31)
[2025-01-16 06:32] LABS: BUN Creatinine Ratio 38.8 (10-20); Calcium 8.3 mg/dl (8.6-10.3); Potassium 3.8 mmol/L (3.5-5.1)
[2025-01-16] MEDS: CHOLECALCIFEROL 25 MCG (1000 UNITS) TAB PO SCH (07:31)
[2025-01-16] MEDS: LOSARTAN POTASSIUM 50 MG TAB PO SCH (07:32)
[2025-01-16] MEDS: CEROVITE ADV FORMULA TAB PO SCH (07:32)
[2025-01-16] MEDS: dexAMETHasone 10 MG in SYRINGE 0 ML IV SCH (07:33)
[2025-01-16 07:46] VITALS: BP 111/68; PULSE 93; TEMP 97.9; O2SAT 93
--- NOTE | 2025-01-16 08:28 | Orthopedic Progress Note ---
Date of Service January 16, 2025 Assessment & Plan (1) Rotator cuff tear arthropathy of right shoulder: Plan: Advanced rotator cuff arthropathy right shoulder with large degenerative humeral head cyst. Plan is to proceed with reverse shoulder replacement but will need augmented glenoid fixation on the glenoid side and will need revive modular stem to improve distal fixation on the humeral side and debridement of the humeral head cyst and possible bone grafting with humeral head fragments or allograft. Postop day 1 reverse shoulder replacement and humeral head cysts excision with curettage bone grafting. Discharge home if can ambulate safely. Needs to talk to OT as he said he is a fall risk he has a ankle issue and has a left hip issue and feels he could be unsteady and fall and is going to need assistive devices at home that had to be set up prior to discharge. If we can get all these things set up for him he can be discharged. Observe drainage for now possibly will need another hospital stay day 2 set up home issues. Asses situation later in the day today after seen by social service/OT PT. Admission and Anticipated Discharge Date Admission Date: January 15, 2025 Subjective No pain still under effects of block feels well Review of Systems Review of Systems: Noncontributory Physical Exam Musculoskeletal: Dressing dry and intact circulation normal still numb from block and still has weakness in hand consistent with nerve block still under the effect. Results & Data Vital Signs (Past 12 Hours) Vital Signs Temp Pulse Resp BP Pulse Ox O2 Del Method 01/16/25 07:46 36.6 C 93 H 18 111/68 93 Room Air 01/16/25 02:58 36.5 C 89 18 110/70 97 Room Air 01/15/25 23:03 36.5 C 91 H 18 116/73 95 Room Air 01/15/25 21:00 36.4 C L 98 H 18 119/80 96 Room Air Diagnostic Findings Well aligned reverse shoulder replacement with revision stem. Implants normally located
[2025-01-16] MEDS ORDERED: NON-FORMULARY MEDICATION (Turmeric 400 mg Capsule) PO SCH (09:00)
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
[2025-01-16] MEDS ORDERED: RIVAROXABAN 10 MG TABLET PO SCH (21:00)
== END 2025-01-16 15:00 | disposition home health service (06) ==
LOC: ASU 11:32 → 3E 11:32